=== PATIENT | male | born 1990 | race Caucasian/White ===

== ENCOUNTER 2020-01-22 19:09 | Emergency (ER) | payer MEDICAID, OTHER ==
[~2020-01-22] VITALS: Ht 188 cm; Wt 91.7 kg
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
[2020-01-22] MEDS ORDERED: DIPH,PERTUSS(ACELL),TET VAC/PF 0.5 ML IM-VACC ONE ×2 (19:38→20:00)
[2020-01-22] MEDS ORDERED: ONDANSETRON 2MG/ML, 2ML ONE (19:42)
[2020-01-22] MEDS ORDERED: MORPHINE SULFATE 4 MG/ML, 1ML ONE ×2 (19:43→20:38)
[2020-01-22] MEDS ORDERED: ONDANSETRON 2MG/ML, 2ML IVPush ONE (20:00)
[2020-01-22] MEDS ORDERED: SODIUM CHLORIDE FLUSH 10ML SYR IVF ONE (20:00)
[2020-01-22] MEDS ORDERED: L.E.T SOLUTION TP ONE (20:00)
[2020-01-22] MEDS ORDERED: SODIUM CHLORIDE 0.9% 1,000ML IVBOLUS ONE (20:00)
--- NOTE | 2020-01-22 20:00 | NUR ---
PIV PLACED, IVF RUNNING. MEDICATED PER EMAR. LET APPLIED TO HANDS, KNEE, HIP
[2020-01-22] MEDS: MORPHINE SULFATE 4 MG/ML, 1ML IVPush PRN ×2 (20:11→20:42)
--- NOTE | 2020-01-22 20:44 | NUR ---
SECOND DOSE OF MORPHINE GIVEN WHILE TECH IS DEBRIDING WOUNDS AND CLEANING
[2020-01-22] MEDS ORDERED: morphine SULFATE 10 MG/ML, 1ML IVPush ONE (21:00)
[2020-01-22 21:50] VITALS: BP 138/96
--- NOTE | 2020-01-22 22:06 | NUR ---
Patient given discharge instructions and they have confirmed that they understand the instructions. Patient ambulatory with steady gait.
== END 2020-01-22 22:17 | disposition home or self-care (01) ==
LOC: ED 19:39
DX: S50.811A Abrasion of right forearm, initial encounter (principal); S60.511A Abrasion of right hand, initial encounter; S70.211A Abrasion, right hip, initial encounter; S80.211A Abrasion, right knee, initial encounter; S40.212A Abrasion of left shoulder, initial encounter; S50.812A Abrasion of left forearm, initial encounter; S60.512A Abrasion of left hand, initial encounter; M79.642 Pain in left hand; M79.641 Pain in right hand; Z88.0 Allergy status to penicillin; V89.2XXA Person injured in unspecified motor-vehicle accident, traffic, initial encounter; Y93.89 Activity, other specified; Y92.488 Other paved roadways as the place of occurrence of the external cause; Y99.8 Other external cause status
CPT/HCPCS: 70450; 72125; 96374; 96375; 96376; 99285; J2270; J2405; J7030